=== PATIENT | female | born 1985 | race Caucasian/White ===

== ENCOUNTER 2019-06-12 13:49 | Observation (INO) ==
[2019-06-12 14:20] LABS: BASO# 0.05 X1000 (0.0-0.2); BASO% 0.8 % (0.0-0.8); EOS# 0.03 X1000 (0.0-0.7); EOS% 0.5 % (0.0-10.0); HEMATOCRIT 37.5 % (37.0-47.0); HEMOGLOBIN 12.4 g/dL (12.0-16.0); IMM GRAN# 0.02 X1000 (0.0-0.04); IMM GRAN% 0.3 % (0.0-0.5); LYMPH# 1.66 X1000 (1.2-3.4); LYMPH% 27.3 % (20.5-51.1); MCHC 33.1 g/dL (33-37); MCV 90.6 FL (81-99); MONO# 0.78 X1000 (0.11-0.59); MONO% 12.8 % (1.7-9.3); MPV 8.9 FL (7.4-10.4); NEUT# 3.55 X1000 (1.4-6.5); NEUT% 58.3 % (42.2-75.2); PLT 262 X1000 (130-400); RBC 4.14 XMIL (4.2-5.4); RDW 12.4 % (11.5-14.5); WBC 6.09 X1000 (4.8-10.8)
[2019-06-12] MEDS ORDERED: MORPHINE IV ONE ×2 (14:37→15:22)
[2019-06-12 14:42] LABS: AGAP 12; ALBUMIN 4.5 g/dL (3.5-5.0); ALKALINE PHOSPHATASE 78 U/L (32-104); BUN 10 mg/dL (8-22); CALCIUM 9.5 mg/dL (8.8-10.2); CHLORIDE 104 mmol/L (98-107); COSMO 276; CREATININE 0.8 mg/dL (0.5-0.9); ESTIMATED GFR > 60; GLUCOSE 96 mg/dL (70-104); GOT 19 U/L (10-30); GPT 12 U/L (10-36); LIPASE 13 U/L (13-60); POTASSIUM 4.1 mmol/L (3.5-5.1); SODIUM 139 mmol/L (136-145); TCO2 23 mmol/L (25-35); TOTAL PROTEIN 6.4 g/dL (6.3-8.3)
[2019-06-12 14:46] LABS: BILIRUBIN URINE NEGATIVE (NEGATIVE); BLOOD URINE 3+ (NEGATIVE); CLARITY CLEAR (CLEAR); COLOR YELLOW; GLUCOSE URINE NEGATIVE (NEGATIVE); KETONE URINE 2+(Moderate) mg/dL (NEGATIVE); LEUKOCYTES URINE 1+ (NEGATIVE); NITRITE URINE NEGATIVE (NEGATIVE); PH URINE 6.5; PROTEIN URINE 1+(30 mg/dL) mg/dL (NEGATIVE); SP GRAVITY URINE 1.015; UROBILINOGEN URINE 4 mg/dL
[2019-06-12 14:48] LABS: URINE SOURCE CATH
[2019-06-12 14:50] LABS: URINE BACTERIA 1+ /HFP; URINE CAST NONE SEEN /LPF; URINE CRYSTAL NONE SEEN /HPF; URINE EPITHELIAL CELLS >10 /HPF (<10); URINE RBC <10 /HPF (<10); URINE WBC <10 /HPF (<10); URINE YEAST PRESENT /HPF
[2019-06-12 15:22] LABS: UR AMPHETAMINES QUAL PRESUMPTIVE POSITIVE (NONE DETECT); UR BARBITUATES QUAL NONE DETECTED (NONE DETECT); UR BENZODIAZEPIN QUAL PRESUMPTIVE POSITIVE (NONE DETECT); UR CANNABINOIDS QUAL PRESUMPTIVE POSITIVE (NONE DETECT); UR COCAINE QUAL NONE DETECTED (NONE DETECT); UR METHADONE QUAL NONE DETECTED (NONE DETECT); UR METHAMPHETAMINE QUAL PRESUMPTIVE POSITIVE (NONE DETECT); UR OPIATES QUAL NONE DETECTED (NONE DETECT); UR OXYCODONE QUAL NONE DETECTED (NONE DETECT); UR PCP QUAL NONE DETECTED (NONE DETECT); UR PROPOXYPHENE QUAL NONE DETECTED (NONE DETECT); UR TCA QUAL NONE DETECTED (NONE DETECT)
[2019-06-12] MEDS ORDERED: ATIVAN IV ONE (15:22)
--- NOTE | 2019-06-12 17:14 | Diag Imaging Result Doc PS360 ---
EXAM: US TRANSVAGINAL OB HISTORY: right lower pelvic pain TECHNIQUE: Transvaginal pelvic ultrasound COMPARISON: None. FINDINGS: The uterus measures 7.5 x 5.8 x 4.6 cm. The endometrium is thickened with the two payne combined measuring 1.8 cm. No intrauterine gestational sac identified. There is a moderate to large amount of free fluid. There is a 2.6 cm right ovarian cyst. The left ovary is not identified. IMPRESSION: 1.Endometrial thickening, but no intrauterine identified 2.Moderate to large amount of free fluid in the pelvis 3.Right ovarian cyst Electronically signed by Akash Hilliard 06/12/2019 5:12 PM
--- NOTE | 2019-06-12 18:55 | PROVIDER DOCUMENTATION ---
This chart was entered by Shantal Juan Scribe, acting as scribe for Betito Davalos MD. HPI-Abdominal Pain/GI Problem - General Chief Complaint: Abdominal Pain Stated Complaint: ABD PAIN Time Seen by Provider: 06/12/19 14:01 Source: patient, family (mother) Allergies/Adverse Reactions: Patient Allergies Allergy/AdvReac Type Severity Reaction Status Date / Time No Known Allergies Allergy Verified 03/30/15 10:56 Home Medications: Home Medication List Medication Instructions Recorded Confirmed Last Taken Type Neomycin/Polymyxn/Hc Otic Soln 4 drop LEFT EAR TID #1 bottle 03/30/15 Unknown Rx [Cortisporin Otic Soln] Promethazine [Phenergan] 25 mg PO Q6H PRN PRN #20 tablet 04/12/16 Unknown Rx Azithromycin 250 mg PO DAILY #4 tablet 08/09/18 Unknown Rx Fluticasone 50 Mcg Nasal [place] 120 spray .SEE ORDER DAILY #1 08/09/18 Unknown Rx [Flonase] bottle Loratadine [Claritin] 10 mg PO DAILY #30 tablet 08/09/18 Unknown Rx D-Methorphan/P-Epd/Bpm [Bromfed Dm 5 ml PO Q4H PRN #120 ml 08/23/18 Unknown Rx Liquid] - History of Present Illness-ABD Nature of Presenting Problems: 33 yowf presents to the ed with c/o abdominal pain onset this am and is 10/10 pain. pt has some nausea but denies vomiting. pt sts was seen at [place] [facility] recently and was dx with constipation. pt on exam is doubled over in pain and sts "this is so bad" pt is tearful on exam Abdominal Pain Onset Location: reports: generalized abdomen Quality of Pain: reports: sharp, stabbing Severity in ED: reports: severe Onset/Duration: reports: this morning Timing: reports: still present Activities at Onset: reports: light activity Exposure to sick contacts?: No Modifying Factors: improves with: nothing. worse with: movement, palpation Associated Symptoms: reports: nausea. denies: back/neck pain, chest pain, diarrhea, fever/chills, shortness of breath, vomiting Last BM: last night Dark Stools Present?: reports: none noticed Rectal Bleeding: reports: none # of Diarrhea Episodes: 0 Rectal Pain: reports: none # of Vomiting Episodes: 0 Emesis Description: reports: none Bruising or Bleeding Gums?: No Similar Symptoms Previously?: Yes (dx with constipation from [place] [facility]) Recently seen or treated by another doctor?: Yes ([facility]) Review of Systems - Adult - REVIEW OF SYSTEMS - ADULT Constitutional: denies: fever Eyes: reports: no symptoms reported Ears, Nose, Mouth & Throat: reports: no symptoms reported Cardiovascular: denies: chest pain, palpitations Respiratory: reports: no symptoms reported Gastrointestinal: reports: see HPI, abdominal pain, constipation, nausea. denies: diarrhea, vomiting Genitourinary: reports: no symptoms reported Musculoskeletal: denies: back pain, neck pain Integumentary: reports: no symptoms reported Neurological: denies: dizziness/vertigo, headache/migraines Psychiatric: reports: no symptoms reported Endocrine: reports: no symptoms reported Hematologic/Lymphatic: reports: no symptoms reported Allergic/Immunologic: reports: no symptoms reported All Other Systems: Reviewed and Negative Past History - Adult - PAST MEDICAL HISTORY-ADULT Review of Records: reports: Old Records Reviewed, Nursing Assessment Review, Medications Reviewed, Social history reviewed & non-contributory. Major Childhood Illnesses: reports: denies history Cardiovascular: reports: denies history Respiratory: reports: denies history Gastrointestinal: reports: denies history Obstetrical/Gynecological: reports: denies history Genitourinary: reports: denies history Musculoskeletal: reports: denies history Neurological: reports: denies history Psychiatric: reports: anxiety, depression, other (panic attacks) Endocrine/Immune: reports: denies history Other Conditions: reports: denies history - PRIOR SURGERIES/PROCEDURES Surgical/Procedure History: reports: , tonsillectomy - PRIOR HOSPITALIZATIONS Prior Hospitalizations: reports: for other non-related - IMMUNIZATION STATUS Childhood Immunizations: See Nurse Assessment Flu Vaccine: See Nurse Assessment - FAMILY HISTORY Family History: reviewed, not pertinent - SOCIAL HISTORY Smoking: cigarettes, less than 1 pack/day Provider spent 3-5 mins advising pt. on dangers of tobacco.: Discussed manners to quit use, and f/u contacts for add'l counseling. Substance Use: alcohol Alcohol Use Frequency: occasionally Number of drinks per typical drinking period:: 3-4 drinks Living Situation: family Physical Exam-General - PHYSICAL EXAM-ADULT Initial Vital Signs Reviewed: Yes - CONSTITUTIONAL General Appearance: alert, severe distress. negative: appears well - EYES Eyes: PERRL/EOMI, pink conjunctivae - HEAD, EARS, NOSE, MOUTH & THROAT HENMT: moist mucous membranes - NECK Neck: non-tender, full range of motion, supple, normal inspection - RESPIRATORY Respiratory: chest non-tender, lungs clear, normal breath sounds, increased rate (29) - CARDIOVASCULAR Cardiovascular: normal peripheral pulses, tachycardia (118) - CHEST (BREASTS) Chest/Breast: deferred - GASTROINTESTINAL (ABDOMEN) Abdominal Exam: soft, guarding, rebound, tenderness, psoas sign, other (pt sts on menstrual cycle now but tested poitive for ). negative: rigid, obturator sign - GENITOURINARY Female Genitalia/Pelvic Exam: deferred Rectal Exam: deferred Hemoccult Exam: deferred - LYMPHATIC Lymphatic: no adenopathy - MUSCULOSKELETAL Back Exam: normal inspection, no CVA tenderness, no vertebral tenderness Extremity: normal range of motion, non-tender, normal inspection - SKIN Integumentary: normal color, normal turgor, warm/dry - NEUROLOGIC Neurologic: grossly normal - PSYCHIATRIC Psych/Mental Status: normal mood/affect, normal thought content, normal thought process, oriented x 3 Progress - PLAN OF CARE/RESULTS Progress/Plan/Lab Results: Vital Signs - 8 hr 06/12/19 13:50 Temperature 98 F Pulse Rate 118 H Respiratory Rate 29 H Blood Pressure 103/69 O2 Sat by Pulse Oximetry 100 Bedside Urine ED: Urine Bedside Start: 06/12/19 13:55 Freq: ORDERED Status: Active Protocol: Activity Type Activity Date Activity User E-Sign Co-Sign Detail Recorded Client Recorded Date Recorded By Document 06/12/19 14:32 [id number] 06/12/19 14:33 [id number] 06/12/19 14:32 Point of Care [Bedside Point of Care] -Lot # [id number] - Results Positive -Control Line Visible? Yes Laboratory Results - last 24 hr 06/12/19 06/12/19 14:11 14:11 WBC 6.09 RBC 4.14 L Hgb 12.4 Hct 37.5 MCV 90.6 MCH 30.0 MCHC 33.1 RDW Std Deviation 12.4 Plt Count 262 MPV 8.9 Immature Gran % (Auto) 0.3 Neut % (Auto) 58.3 Lymph % (Auto) 27.3 Boyd % (Auto) 12.8 H Eos % (Auto) 0.5 Baso % (Auto) 0.8 Immature Gran # (Auto) 0.02 Neut # (Auto) 3.55 Lymph # (Auto) 1.66 Boyd # (Auto) 0.78 H Eos # (Auto) 0.03 Baso # (Auto) 0.05 Amylase 52 Orders Category Date Time Status ED: Urine Bedside ORDERED Care 06/12/19 13:55 Active US TRANSVAGINAL OB [US] Stat Exams 06/12/19 14:32 Ordered AMYLASE [CHEM] Stat Lab 06/12/19 14:11 Completed CBC WITH DIFF [HEME] Stat Lab 06/12/19 14:11 Completed COMPREHENSIVE METABOLIC PANEL [CHEM] Stat Lab 06/12/19 14:11 Received LIPASE [CHEM] Stat Lab 06/12/19 14:11 Received QUANT TEST Stat Lab 06/12/19 14:[address] W/POSS RFLX CULT [URINALYSIS] Stat Lab 06/12/19 14:30 Received Morphine Med 06/12/19 14:37 Discontinued 4 mg IV NOW ONE Result Diagrams: 06/12/19 14:11 06/12/19 14:11 - REASSESSMENT Reassessment #1 Time Reassessed: 17:16 (pain has improved) Status: improving Reassessment Comment: pt is resting - ULTRASOUND (By Radiology) 1 US Study: Pelvic, Transvaginal Impression: See EMR Report (EXAM: US TRANSVAGINAL OB HISTORY: right lower pelvic pain TECHNIQUE: Transvaginal pelvic ultrasound COMPARISON: None. FINDINGS: The uterus measures 7.5 x 5.8 x 4.6 cm. The endometrium is thickened with the two payne combined measuring 1.8 cm. No intrauterine gestational sac i dentified. There is a moderate to large amount of free fluid. There is a 2.6 cm right ovarian cyst. The left ovary is not identified. IMPRESSION: 1.Endometrial thickening, but no intrauterine identified 2.Moderate to large amount of free fluid in the pelvis 3.Right ovarian cyst Electronically signed by Akash Hilliard 06/12/2019 5:12 PM 06/12/19 376 Interpreting Physician: Akash Hilliard MD Dictated Date/Time: 06/12/191709 cc: Betito Davalos MD; None,PCP) - CONSULTS/PCP/HOSPITALIST Notification #1 *Consult/PCP/Hospitalist*: dr parker OB Time Discussed: 17:17 Reason/Comments: phone consult Consult Disposition: Will see in ED Departure - Departure Date of Disposition Decision: 06/12/19 Time of Disposition Decision: 18:54 DIAGNOSIS: Ectopic without intrauterine Disposition: ADMITTED INPATIENT 09 Certified Medical Emergency: Emergent Condition: Good Referrals and Follow-Ups: None,PCP [Primary Care Provider] - - Critical Care Note This patient required my direct & personal management of CC.: Yes Total Time (mins): 38 Critical Care Statement: This patient required my direct personal management to treat or rule out processes, the absence of which, could potentiallly result in sudden, clinically significant life or limb threatening deterioration. Attestation - Physician/ ALINE Attestation Patient care was provided by Advanced Practice Provider:: No The physician spent face to face time with patient:: Yes Advanced Practice Provider documentation review:: Supervising physician onsite and consulted in the evaluation and care of this patient. The physician did have a face to face encounter with the patient. This chart was documented by the indicated scribe, (Shantal Juan Scribe) and accurately reflects the services I performed and decisions made by me, Betito Davalos MD, as attested by the provider's signature.
[2019-06-12 19:22] LABS: HEMATOCRIT 33.5 % (37.0-47.0); HEMOGLOBIN 10.9 g/dL (12.0-16.0)
[2019-06-12] MEDS ORDERED: NS 1,000 ML IV ONE (19:37)
[2019-06-12] MEDS ORDERED: QUELICIN (DOSE) ONE ×2 (19:38→22:03)
[2019-06-12] MEDS ORDERED: ZEMURON ONE ×3 (19:39→21:02)
[2019-06-12] MEDS ORDERED: XYLOCAINE-MPF 2% ONE (19:39)
[2019-06-12] MEDS ORDERED: DIPRIVAN 1% ONE (19:39)
[2019-06-12] MEDS ORDERED: SENSORCAINE 0.5%-EPI 1:200,000 ONE (19:40)
[2019-06-12] MEDS ORDERED: VERSED ONE (19:40)
[2019-06-12] MEDS ORDERED: LR 1,000 ML ONE (19:40)
[2019-06-12] MEDS ORDERED: PEPCID ONE (20:31)
[2019-06-12] MEDS ORDERED: REGLAN ONE (20:31)
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
[2019-06-12] MEDS ORDERED: PRECEDEX ONE (20:38)
[2019-06-12] MEDS ORDERED: DECADRON ONE (21:23)
[2019-06-12] MEDS ORDERED: ZOFRAN ONE (21:23)
[2019-06-12] MEDS ORDERED: ROBINUL ONE ×2 (21:24→22:08)
[2019-06-12] MEDS ORDERED: TORADOL ONE (21:46)
[2019-06-13] MEDS ORDERED: MOTRIN PO PRN (00:19)
[2019-06-13] MEDS ORDERED: ZOFRAN IV PRN (00:19)
[2019-06-13] MEDS ORDERED: MORPHINE IV PRN (00:19)
[2019-06-13] MEDS ORDERED: NORCO-5 PO PRN ×2 (00:19)
--- NOTE | 2019-06-13 00:40 | OPERATIVE NOTE ---
PROCEDURE DATE: 06/12/2019 PREOPERATIVE DIAGNOSIS: Impending or ongoing tubal rupture, ectopic . POSTOPERATIVE DIAGNOSES: 1. Impending or ongoing tubal rupture, ectopic . 2. Right ruptured ectopic with hemoperitoneum. PROCEDURE: Laparoscopic excision and removal of distal right fallopian tube SURGEON: Dr. Garland. PROBATION AND PATROL AGENT: GLORIA Ruiz FA. ANESTHESIA: General endotracheal under the direction of the Christiana Norris CRNA, and Dr. Jarvis. ESTIMATED BLOOD LOSS: Was 400 mL of clot and blood in the pelvis. OR blood loss Minimal, less than 15 mL. SPECIMENS: Distal portion of the right fallopian tube sent to pathology. COMPLICATIONS: None. CONDITION: Stable to PACU. INDICATIONS: The patient is a 33-year-old G3, P2 female who presented to the emergency room with approximately 2-day history of lower abdominal pain that worsened this morning that became intense, sharp, stabbing and constant. The patient had peritoneal signs as well as rebound and guarding on evaluation the ER. Ultrasound obtained, revealed a thickened endometrium and no gestational sac being present, and a moderate to large amount of free fluid in the abdomen was noted. There was also a 2.6 cm right ovarian cyst, but the left ovary was not identified. Of note, patient has had a history of x2 with tubal ligation reported with 2nd . No other abdominal surgeries. Quantitative hCG was 481. Preoperative hemoglobin was 12.4 and 37.5 hematocrit respectively, white count of 6.09. Pulse was in the 90s, blood pressure was stable in the low 100s/60s, 98% on room air. Due to findings on ultrasound with moderate to large amount of fluid, positive test with quant of 481, rebound, guarding, and peritoneal signs on exam decision was made to proceed with laparoscopic procedure for both diagnosis and treatment of presumed ruptured right ectopic based upon patient's pain being on the right-hand side and finding of a right ovarian cyst and history of tubal ligation due to the impending or ongoing tubal rupture. Just prior to going to OR Hgb repeat 10.9. Risks and benefits of proceeding with laparoscopy were discussed with the patient, including risks of bleeding, infection associated with surgical procedures as well as risk of need for blood transfusion if bleeding is extensive. Patient is willing to accept blood products if needed. I discussed that minimally invasive laparoscopy would be attempted, but there is always possibility for open laparotomy if needed. The patient and her mother state understanding for this. Risks of possibility of damage to other vital adjacent organs, including bowel, bladder, major blood vessels and the uterus itself were all discussed with the patient. I discussed her previous surgical history of having had 2 C-sections can increase the risk of adhesions, and if adhesions are present, this can increase risk of damage to other vital adjacent organs. I discussed that postoperatively, she has will still be experiencing pain, but the underlying cause behind her pain will be taken care of. She states understanding as well. Details regarding surgery were discussed at length on 2 separate occasions, both at the [facility] and, again, on arrival to the [facility] just prior to surgery, the patient's mother did sign for her procedure as patient had received morphine x2, as well as Ativan and was somewhat sleepy and distracted during discussion. All questions were answered. Informed consent was obtained and signed. Patient's mother signed consent for patient due to morphine and ativan use. FINDINGS: Visualization of the pelvis revealed approximately 400 mL of blood and clot. The distal right fallopian tube was totally ragged in nature and a blown out area of ectopic rupture was noted; basically, the whole distal fallopian tube. This was present from the site of previous tubal interruption distally. The right ovary itself appeared normal as did the left tube and ovary, and otherwise normal appearing uterus. Appendix itself also appeared grossly normal. PROCEDURE NARRATIVE: Patient taken the operating room where a time-out was performed. Patient was identified and the procedure was confirmed. Next, adequate general anesthesia was achieved. She was prepped and draped in the usual sterile fashion in the low dorsal lithotomy position. Erazo catheter was placed to straight drain. Speculum was placed in the vagina. The cervix was visualized. No active bleed noted from the os. Tenaculum was applied and the Sargis uterine manipulator was inserted without difficulty for manipulation. Attention was then turned to the abdomen. Infraumbilical skin incision was made with 15 blade scalpel. S retractors were utilized to dissect down through the subcutaneous tissue to the fascia. Fascia was grasped with hemostats x2, elevated, entered sharply with Metzenbaum scissors. Expansion of the fascial opening was made with hemostats. Under direct visualization, the 10 mm Jones or balloon port was introduced without difficulty. The balloon was expanded. CO2 gas was then used on high- flow for insufflation. Tympany was present. Camera was introduced. Visualization occurred while patient in the supine position, blood and clot could be seen in the lower pelvis. There was no damage at point of entry to omentum or any structures. Two 5 mm trocar ports were inserted in the lower abdomen. First on left and then on ride side that were placed under direct visualization. Irrigation and suction occurred to try to clear as much blood and clot as possible that was visualized in the supine position prior to the Trendelenburg placement. Once this was cleared up visually, Trendelenburg was achieved. Uterus was elevated. There was still a considerable amount of congealed fibrinated clot present in the cul-de-sac as well as adherent to the sidewall, ovary, and tube on the right. Copious amounts of sterile water were used for irrigation and break-up of clot with suction laundromat manager was used to clear the cul-de-sac as well as around the tube at site of rupture distally. There was minimal to no active bleeding, just oozing out of the distal ruptured tube with visualization. Distal portion of the tube was grasped, elevated, and the LigaSure device was used to excise the distal portion of the fallopian tube under direct visualization. The ruptured ectopic/distal tube was brought through the 5 mm trocar port without difficulty and was watched the entire way out. There was still some large congealed clot in the posterior cul-de-sac that was taken down with continued irrigation and broken apart with the suction laundromat manager as well as grasper until all clot was successfully removed. There was no active bleeding from the excision site or right remaining proximal fallopian tube. Again, both ovaries visually appeared normal as well as the uterus. The inferior ports were taken out under direct visualization with no active bleeding. As much CO2 gas as possible was removed through the infraumbilical port device. The infraumbilical port was then removed without difficulty. The fascia was grasped with Ignacia clamps, elevated, and the fascial incision of the infraumbilical incision was reapproximated with running 0 Vicryl suture with eversion of the edges and visualization of needle entry and exit. There were no palpated defects once closure occurred. No active bleeding from incision sites noted and the skin was reapproximated at each site with 4-0 Vicryl in a subcuticular fashion. Incision sites were injected with 0.5% Marcaine with epinephrine. The abdomen was cleansed and dried. Steri-Strips were applied. No Mastisol was used. The Sargis uterine manipulator was removed from the vagina. A sponge stick was inserted and no active bleeding was noted. Sponge, lap, and needle counts were correct. Patient tolerated procedure well, was taken to the recovery room in stable condition. As the lateness of the evening as well as the patient with overall low pain tolerance, per her mother, who has disabilities and will be the 1 giving the care, we will observe overnight and recheck H and H in the morning and plan for discharge in the morning. cc: Dana Garland MD MTDD
[2019-06-13 07:20] VITALS: BP 89/52
[2019-06-13 07:41] LABS: HEMATOCRIT 30.8 % (37.0-47.0); HEMOGLOBIN 10.1 g/dL (12.0-16.0)
--- NOTE | 2019-06-13 08:25 | DISCHARGE SUMMARY ---
ADMISSION DATE: 06/12/2019 DISCHARGE DATE: 06/13/2019 ADMITTING DIAGNOSIS: Ectopic , right. DISCHARGE DIAGNOSES: 1. Ectopic , right. 2. Laparoscopic removal of ectopic , right fimbria. BRIEF HISTORY AND HOSPITAL COURSE: Patient is a 33-year-old, 3, para 2 with 2 prior sections and a tubal ligation at the time of her second section, who presents to the emergency room with right-sided pain and guarding, and a positive test. Pt presented w/ polypharmacy abuse, positive for methamphetamine and benzo. Ultrasound revealed a 2.6 cm right ovarian cyst and a large to moderate amount of free fluid. The patient's evaluation required surgical management and the patient underwent a laparoscopic removal of right ectopic and fimbria, evacuation of hemoperitoneum. Please see separate operative note. Her postoperative course is uncomplicated. Postoperative day #1, she is afebrile with stable vital signs. She is ambulating, voiding, tolerating a regular diet, and discharged home in stable condition. Preoperative hemoglobin of 10.9 dropped to 10.1 on the morning after surgery. She had an abdominal binder on but the abdomen was otherwise soft and nondistended. She was asked to follow up with Dr. Curry in 1 week. She was asked to call that office for pain, fever greater than 100.4, abnormal vaginal bleeding. Maintain pelvic rest and a regular diet. Continue home medications. A prescription for Motrin and Percocet provided. Nursing staff was asked to ensure the patient ambulated adn voided prior to discharge, or to call me. Follow up in 1 week. cc: Dana Garland MD [facility]
[2019-06-13] MEDS ORDERED: PERIDEX MT SCH (09:00)
[2019-06-13] MEDS ORDERED: FLU VACCINE IM ONE (10:10)
== END 2019-06-13 10:44 | disposition home or self-care (01) ==
LOC: P.ED 13:49 → SURHOLD 19:29 → INTOOBSV 19:29 → SURHOLD 19:51 → 4N 23:55
PROVIDERS: ADMIT Obstetrics & Gynecology; ATTEND Obstetrics & Gynecology